=== PATIENT | female | born 1980 | race African-American/Black ===

== ENCOUNTER 2018-02-16 12:28 | Emergency (ER) | payer MEDICAID ==
[~2018-02-16] VITALS: Ht 157.5 cm; Wt 127.0 kg
--- NOTE | 2018-02-16 12:39 | NUR ---
PATIENT AMBULATED TO BED 4 AT THIS TIME.
[2018-02-16 12:42] VITALS: BP 132/95
--- NOTE | 2018-02-16 12:45 | NUR ---
PT C/O R FLANK PAIN 7/10 FOR PAST 1 DAY. DENIES NVD. PT STATES PAIN RADIATES TO LOWER ABDOMEN. DENIES FEVERS AND CHILLS. VSS; PATIENT POSITIONED FOR COMFORT; HOB ELEVATED; BEDRAILS UP X1; BED DOWN. ER MD MADE AWARE OF PT STATUS.
[2018-02-16 14:29] VITALS: BP 128/75
--- NOTE | 2018-02-16 14:29 | NUR ---
Patient discharged with v/s stable. Written and verbal after care instructions given and explained. Patient alert, oriented and verbalized understanding of instructions. Ambulatory with steady gait. All questions addressed prior to discharge. ID band removed. Patient advised to follow up with PMD. Rx of KEFLEX 500MG AND PYRIDIUM 200MG given. Patient educated on indication of medication including possible reaction and side effects. Opportunity to ask questions provided and answered.
== END 2018-02-16 14:29 | disposition home or self-care (01) ==
LOC: MED 12:28
DX: N39.0 Urinary tract infection, site not specified (principal)
CPT/HCPCS: 81002; 81025; 87086; 99283